=== PATIENT | male | born 1985 | race African-American/Black ===

== ENCOUNTER 2017-10-24 08:58 | Emergency (ER) | payer MEDICAID, OTHER ==
--- NOTE | 2017-10-24 10:13 | XRAY Report ---
EXAM: LEFT SHOULDER RADIOGRAPHY EXAM DATE: 10/24/2017 10:02 AM. CLINICAL HISTORY: Injured 2 days ago. COMPARISON: None. TECHNIQUE: 3 views. FINDINGS: Bones: Normal. No fracture or bone lesion. Joints: The glenohumeral and acromioclavicular joints are normal. Soft tissues: The visualized hemithorax is unremarkable. No soft tissue swelling. IMPRESSION: Normal shoulder radiography. [facility] Referring Provider Line: [phone] SITE ID: [id number]
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
[2017-10-24] MEDS ORDERED: DEXAMETHASONE 10 MG/ML VIAL PO STA (10:39)
[2017-10-24] MEDS ORDERED: CHERRY SYRUP 10 ML UDC PO ONE (10:57)
[2017-10-24 11:05] VITALS: BP 133/76
== END 2017-10-24 11:02 | disposition home or self-care (01) ==
LOC: ED 08:58
DX: S40.012A Contusion of left shoulder, initial encounter (principal); Y35.811A Legal intervention involving manhandling, law enforcement official injured, initial encounter; Y99.0 Civilian activity done for income or pay
CPT/HCPCS: 1040M; 73030; 99283; A9270

== ENCOUNTER 2018-01-01 11:48 | Outpatient (CLI) | payer BC ==
--- NOTE | 2018-01-01 15:03 | XRAY Report ---
THREE VIEW CERVICAL SPINE: 01/01/2018 CLINICAL INDICATION: Acute neck pain. FINDINGS: AP, lateral, odontoid, swimmer's views of the cervical spine demonstrate straightening of the normal cervical lordosis. There is no evidence of fracture or subluxation. The prevertebral soft tissues are unremarkable. IMPRESSION: STRAIGHTENING OF NORMAL CERVICAL LORDOSIS, BUT NO EVIDENCE OF ACUTE FRACTURE. TD: 01/01/2018 15:02
== END 2018-01-01 11:49 | disposition home or self-care (01) ==
LOC: DI.S 11:48
PROVIDERS: ATTEND Nurse Practitioner Family
DX: M54.2 Cervicalgia (principal)
CPT/HCPCS: 72040

== ENCOUNTER 2019-05-03 04:54 | Emergency (ER) | payer OTHER, BC ==
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
[2019-05-03] MEDS ORDERED: TETANUS/DIPHTHERIA/PERTUSSIS 0.5 ML SYRINGE IM ONE (05:38)
--- NOTE | 2019-05-03 06:45 | XRAY Report ---
Reason: back pain, injury Procedure Date: 05/03/2019 Accession Number: [id number] / [id number] Procedure: XR - Lumbar Spine 2 View CPT Code: FULL RESULT: EXAM: LUMBOSACRAL SPINE RADIOGRAPHY EXAM DATE: 05/03/2019 06:37 AM. CLINICAL HISTORY: Back pain, injury. COMPARISONS: None. TECHNIQUE: 3 views. FINDINGS: Alignment: Normal. No spondylolisthesis or scoliosis. Bones: Five [id number] lumbar vertebral bodies are present. No fractures or bone lesions. Disks: Normal. Disk heights are maintained. Facets: No degenerative changes. Sacroiliac Joints: Unremarkable. Soft Tissues: Normal. The visualized bowel gas pattern is normal. IMPRESSION: Normal lumbar spine radiography. [facility]
--- NOTE | 2019-05-03 07:01 | XRAY Report ---
Reason: back pain, injury Procedure Date: 05/03/2019 Accession Number: [id number] / [id number] Procedure: XR - Thoracic Spine 2 View CPT Code: FULL RESULT: EXAM: THORACIC SPINE RADIOGRAPHY EXAM DATE: 05/03/2019 06:55 AM. CLINICAL HISTORY: Back pain, injury. COMPARISON: None. TECHNIQUE: 3 views. FINDINGS: Alignment: Normal. No spondylolisthesis or scoliosis. Bones: No fractures or bone lesions. Disks: Normal. Disk heights are maintained. Soft Tissues: Normal. The visualized lungs and cardiomediastinal silhouette are normal. IMPRESSION: Normal thoracic spine radiography. [facility]
[2019-05-03 07:44] VITALS: BP 130/83
== END 2019-05-03 07:44 | disposition home or self-care (01) ==
LOC: ED 04:54
DX: S61.207A Unspecified open wound of left little finger without damage to nail, initial encounter (principal); S39.012A Strain of muscle, fascia and tendon of lower back, initial encounter; S00.81XA Abrasion of other part of head, initial encounter; S00.31XA Abrasion of nose, initial encounter; Y35.811A Legal intervention involving manhandling, law enforcement official injured, initial encounter; Y93.89 Activity, other specified; Y99.0 Civilian activity done for income or pay
CPT/HCPCS: 1040M; 72070; 72100; 90471; 90715; 99282; 99283

== ENCOUNTER 2021-10-06 08:00 | Outpatient (CLI) | payer BC | END 2021-10-06 23:59 | LOC: LAB 08:00 | PROVIDERS: ATTEND Physician Assistant Medical | DX: U07.1 COVID-19 (principal) ==